=== PATIENT | female | born 1965 | race Caucasian/White ===

== ENCOUNTER 2021-01-21 17:36 | Emergency (ER) | payer SELFPAY ==
--- NOTE | 2021-01-21 18:58 | PC.NURSE ---
Called to triage at 1812, and 1856. No show on both calls.
== END 2021-01-22 05:01 | disposition left against medical advice (07) ==
LOC: ANHED 19:17
PROVIDERS: PCP Family Medicine
DX: Z53.21 Procedure and treatment not carried out due to patient leaving prior to being seen by health care provider (principal)
CPT/HCPCS: 99199